=== PATIENT | male | born 1950 | race Caucasian/White ===

== ENCOUNTER 2020-03-05 00:20 | Emergency (ER) | payer MEDICARE, BC ==
[2020-03-05] MEDS ORDERED: cloNIDine 0.1 MG Tab PO ONE (01:00)
--- NOTE | 2020-03-05 01:46 | EDM.PDOC ---
ED HPI GENERAL MEDICAL PROBLEM - General Chief Complaint: Cardiovascular Problem Stated Complaint: [facility] Time Seen by Provider: 03/05/20 00:51 Source of Information: Reports: Patient, RN Notes Reviewed - History of Present Illness INITIAL COMMENTS - FREE TEXT/NARRATIVE: 69 yr old male with hx of Htn, had multiple high readings this evening. Last reading at [facility] was about 188/106. No chest pain, Mendez or other unusual sx. He is on 2 meds for Htn. Has not missed any doses. Traveling but denies excess salt. - Related Data Allergies Allergy/AdvReac Type Severity Reaction Status Date / Time Sulfa (Sulfonamide Allergy Severe Rash Verified 03/05/20 00:40 Antibiotics) Home Meds: Home Meds Aspirin [Halfprin] 81 mg PO DAILY 03/05/20 [History] Finasteride 5 mg PO DAILY 03/05/20 [History] HCTZ/Triamterene [Maxzide 25-37.5 MG] 0.5 tab PO DAILY 03/05/20 [History] Tamsulosin [Tamsulosin 24 Hr] 0.4 mg PO DAILY 03/05/20 [History] carvediloL [Coreg] 6.25 mg PO BID 03/05/20 [History] Past Medical History HEENT History: Reports: Impaired Vision Other HEENT History: wears contacts Cardiovascular History: Reports: Hypertension, DE Genitourinary History: Reports: Renal Calculus - Past Surgical History Male Surgical History: Reports: Lithotripsy ([facility]) Social & Family History - Tobacco Use Smoking Status *Q: Never Smoker - Caffeine Use Caffeine Use: Reports: None - Recreational Drug Use Recreational Drug Use: No ED ROS GENERAL - Review of Systems Review Of Systems: See Below Constitutional: Denies: Fever, Chills, Diaphoresis HEENT: Reports: No Symptoms Respiratory: Denies: Shortness of Breath Cardiovascular: Denies: Chest Pain Endocrine: Denies: Fatigue GI/Abdominal: Denies: Abdominal Pain, Nausea, Vomiting Musculoskeletal: Denies: Back Pain Skin: Reports: No Symptoms Neurological: Denies: Headache, Numbness, Tingling, Trouble Speaking, Difficulty Walking, Weakness ED EXAM, GENERAL - Physical Exam Exam: See Below General Appearance: Alert, No Apparent Distress Eye Exam: Bilateral Eye: PERRL Head: Atraumatic. No: Facial Swelling Neck: Supple Respiratory/Chest: No Respiratory Distress, Lungs Clear, Normal Breath Sounds Cardiovascular: Regular Rate, Rhythm GI/Abdominal: Non-Tender Back Exam: No: CVA Tenderness (L), CVA Tenderness (R) Extremities: No: Pedal Edema, Leg Pain, Redness Neurological: Alert, Oriented, No Motor/Sensory Deficits Skin Exam: Warm, Dry, Normal Color, No Rash Course - Vital Signs Last Recorded V/S: Last Vital Signs Temp 97.0 F 03/05/20 01:55 Pulse 74 03/05/20 01:55 Resp 18 03/05/20 01:55 BP 164/106 H 03/05/20 01:55 Pulse Ox 95 03/05/20 01:55 - Orders/Labs/Meds Meds: Medications Discontinued Medications Generic Name Dose Route Start Last Admin Trade Name Dulce PRN Reason Stop Dose Admin Clonidine HCl 0.1 mg 03/05/20 01:00 03/05/20 01:15 Catapres PO 03/05/20 01:01 0.1 mg ONETIME ONE Administration - Re-Assessments/Exams Free Text/Narrative Re-Assessment/Exam: 03/05/20 02:03 have given clonidine, BP down to 150's over 94, discharge instr. as documented. Departure - Departure Time of Disposition: 01:45 Disposition: Home, Self-Care 01 Condition: Fair Clinical Impression: Hypertension Qualifiers: Hypertension type: essential hypertension Qualified Code(s): I10 - Essential (primary) hypertension Instructions: Hypertension, Adult Referrals: PCP,Not In Area [Primary Care Provider] - Forms: ED Department Discharge Additional Instructions: Moniter BP twice daily and keep a record for your provider. You may take an occasional extra dose of your coreg as you did this last evening if needed for way high readings. See your regular medical provider some time in the next 7 to 10 days, call for appt. Sepsis Event Note (ED) - Evaluation Sepsis Screening Result: No Definite Risk - Focused Exam Vital Signs: Vital Signs Temp Pulse Resp BP BP Pulse Ox 03/05/20 01:55 97.0 F 74 18 164/106 H 95 03/05/20 01:37 77 158/94 H 03/05/20 01:15 155/101 H 03/05/20 00:36 98.0 F 80 18 166/100 H 95
== END 2020-03-05 01:57 | disposition home or self-care (01) ==
LOC: JD.ED 00:20
DX: I10 Essential (primary) hypertension (principal); I25.2 Old myocardial infarction; Z88.2 Allergy status to sulfonamides; Z79.82 Long term (current) use of aspirin; Z79.899 Other long term (current) drug therapy
CPT/HCPCS: 99284; A9270